=== PATIENT | male | born 1990 | race Hispanic/Latino ===

== ENCOUNTER 2018-02-21 04:14 | Emergency (ER) | payer SELFPAY ==
[2018-02-21 04:25] VITALS: BMI 29.9
[2018-02-21 04:28] VITALS: BP 103/57; PULSE 117; RESP 16; TEMP 98.9; O2SAT 99
--- NOTE | 2018-02-21 04:46 | ED PDOC ---
HPI: Psych/Substance Abuse Chief Complaint (Provider): crisis eval History Per: Patient, EMS Additional Complaint(s): 28 y/o male brought in by EMS for psychiatric evaluation. As per EMS, patient called police stating he was being followed and police suggested he come here to be checked out. Patient states he left [place] because he was involved in "bad things" and since then people from there have been following him for 6-8 months and trying to get him. Patient states he was at a diner tonight and heard people behind him talking about how they were going to "get him" when he left the diner. Patient admits to history of drug abuse in past but states he now just takes Adderall and Suboxone as prescribed. Denies hallucinations, suicidal/homicidal ideations, acute physical complaints. <Angelique Dennis - Last Filed: 02/21/18 06:00> <Gerri Pineda - Last Filed: 02/21/18 06:28> Time Seen by Provider: 02/21/18 04:30 Chief Complaint (Nursing): Psychiatric Evaluation Past Medical History Reviewed: Historical Data, Nursing Documentation, Vital Signs Vital Signs: Last Vital Signs Temp 98.9 F 02/21/18 04:25 Pulse 117 H 02/21/18 04:25 Resp 16 02/21/18 04:25 BP 103/57 L 02/21/18 04:25 Pulse Ox 99 02/21/18 04:25 - Medical History PMH: Post Traumatic Stress Disorder Other PMH: ADHD - Surgical History Surgical History: No Surg Hx - Family History Family History: States: No Known Family Hx - Living Arrangements Living Arrangements: Alone - Social History Alcohol: None Drugs: Opiates <Angelique Dennis - Last Filed: 02/21/18 06:00> Vital Signs: Last Vital Signs Temp 98.9 F 02/21/18 04:25 Pulse 117 H 02/21/18 04:25 Resp 16 02/21/18 04:25 BP 103/57 L 02/21/18 04:25 Pulse Ox 99 02/21/18 06:01 <Gerri Pineda - Last Filed: 02/21/18 06:28> - Allergies Allergies/Adverse Reactions: Allergies Allergy/AdvReac Type Severity Reaction Status Date / Time haloperidol [From Haldol] Allergy RASH Verified 02/21/18 04:49 lorazepam [From Ativan] Allergy RASH Verified 02/21/18 04:50 Review of Systems ROS Statement: Except As Marked, All Systems Reviewed And Found Negative <Angelique Dennis - Last Filed: 02/21/18 06:00> Physical Exam - Reviewed Nursing Documentation Reviewed: Yes Vital Signs Reviewed: Yes - Physical Exam Appears: Positive for: Well, Non-toxic, Uncomfortable (anxious) Head Exam: Positive for: ATRAUMATIC, NORMAL INSPECTION, NORMOCEPHALIC Skin: Positive for: Normal Color Eye Exam: Positive for: Normal appearance ENT: Positive for: Normal ENT Inspection Cardiovascular/Chest: Positive for: Regular Rate, Rhythm Respiratory: Positive for: Normal Breath Sounds Gastrointestinal/Abdominal: Positive for: Normal Exam Back: Positive for: Normal Inspection Extremity: Positive for: Normal ROM Neurologic/Psych: Positive for: Alert, Oriented (x3), Mood/Affect (paranoid/anxious) <Angelique Dennis - Last Filed: 02/21/18 06:00> - ECG O2 Sat by Pulse Oximetry: 99 - Progress ED Course And Treament: -urine drug screen -crisis eval <Angelique Dennis - Last Filed: 02/21/18 06:00> Disposition - Disposition Disposition Time: 06:00 Patient Signed Over To: Gerri Pineda Handoff Comments: pending urine, crisis final dispo <Angelique Dennis Jhoan - Last Filed: 02/21/18 06:00> <Gerri Pineda - Last Filed: 02/21/18 06:28> - Clinical Impression Clinical Impression: Paranoia, Amphetamine abuse - Disposition Condition: STABLE Additional Instructions: Do not take recreational drugs or amphetamines. Seek psychiatric and medical h elp for drugs abuse. Instructions: Drug Abuse and Drug Addiction (DC), Prescription Drug Abuse (DC) Forms: [employer] (Bulgarian) Print Language: INDONESIAN Addendum Addendum: 02/21/18 06:15 Patient is positive for amphetamine, otherwise, labs are within normal limits. Patient seen and evaluated by crisis under direction of Dr. Du No indication for psych evaluation, patient is stable for discharge. Scribe Attestation: Documented by Leonora Solitario, acting as a scribe for Gerri Pineda MD. Provider Scribe Attestation: All medical record entries made by the Scribe were at my direction and personally dictated by me. I have reviewed the chart and agree that the record accurately reflects my personal performance of the history, physical exam, medical decision making, and the department course for this patient. I have also personally directed, reviewed, and agree with the discharge instructions and disposition. <Gerri Pineda - Last Filed: 02/21/18 06:28>
[2018-02-21 05:59] LABS: URINE BILIRUBIN NEGATIVE (NEGATIVE); URINE BLOOD NEGATIVE (NEGATIVE); URINE CLARITY SLIGHTY-CLOUDY (Clear); URINE COLOR YELLOW (YELLOW); URINE GLUCOSE (UA) NEG (NEGATIVE); URINE LEUKOCYTE ESTERASE NEG Leu/uL (Negative); URINE PROTEIN NEGATIVE (NEGATIVE); URINE UROBILINOGEN 0.2-1.0 mg/dL (0.2-1.0)
[2018-02-21 06:14] LABS: BARBITURATES, UR NEGATIVE (NEGATIVE); BENZODIAZEPINES, UR NEGATIVE (NEGATIVE); OPIATES, UR NEGATIVE (NEGATIVE); PHENCYCLIDINE, UR NEGATIVE (NEGATIVE)
== END 2018-02-21 06:25 | disposition home or self-care (01) ==
LOC: H.ER 04:14
DX: F15.10 Other stimulant abuse, uncomplicated (principal); F22 Delusional disorders; F43.10 Post-traumatic stress disorder, unspecified; F90.9 Attention-deficit hyperactivity disorder, unspecified type
CPT/HCPCS: 81003; 99282; G0480